=== PATIENT | male | born 1980 | race Caucasian/White ===

== ENCOUNTER 2021-11-12 15:21 | Emergency (ER) | payer BC ==
[2021-11-12] MEDS ORDERED: Lidocaine 1% with EPINEPHrine 1:100,000 50 ML MDV SUBCUT STA (17:14)
[2021-11-12] MEDS ORDERED: Bacitracin Oint 1 GM U/D Packet TOP ONE (17:14)
== END 2021-11-12 17:42 | disposition home or self-care (01) ==
LOC: JP.ED 15:21
DX: S11.91XA Laceration without foreign body of unspecified part of neck, initial encounter (principal); Z79.01 Long term (current) use of anticoagulants; X78.9XXA Intentional self-harm by unspecified sharp object, initial encounter
CPT/HCPCS: 12002; 99281; 99283-25